=== PATIENT | male | born 1955 | race Caucasian/White ===

== ENCOUNTER 2021-01-14 06:06 | Emergency (ER) | payer MEDICARE, MEDICAID ==
[2021-01-14 06:19] VITALS: BP 143/99; PULSE 115
[2021-01-14] MEDS: Lidocaine 1% with EPINEPHrine 1:100,000 20 ML MDV INJECT ONE (06:20)
--- NOTE | 2021-01-14 11:20 | ER ---
REASON FOR EMERGENCY ROOM VISIT: Scalp laceration. HISTORY: This 65-year-old man got up early this morning and tripped on his cat. He fell forward and struck his scalp on a bookshelf sustaining a vertical laceration. He did not lose consciousness or suffer any other injuries from this incident. He is up-to-date on his tetanus toxoid status as he last received a tetanus booster within 5 years. PHYSICAL EXAMINATION: He has a 1.5 cm vertical laceration in his right frontal scalp area above the hairline. It is clean with minimal oozing from the skin edges. No bony crepitus is noted. Approximately 2 mL of 1% Xylocaine with epinephrine was used to obtain satisfactory local anesthesia after the area was scrubbed and then prepped with Betadine. Skin edges were then approximated with 3 interrupted stainless steel stone, which gave us good approximation. Antibiotic ointment was applied followed by a Band-Aid. He was instructed regarding symptoms and signs of infection and to have his stone removed in 1 week's time. All questions were answered. He understands and agrees with this plan. SATNAM /[id number]
== END 2021-01-14 06:40 | disposition home or self-care (01) ==
LOC: LB.ED 06:06
DX: S01.01XA Laceration without foreign body of scalp, initial encounter (principal); W01.198A Fall on same level from slipping, tripping and stumbling with subsequent striking against other object, initial encounter
CPT/HCPCS: 12001; 99282-25